=== PATIENT | male | born 1975 | race Caucasian/White ===

== ENCOUNTER 2021-11-24 09:27 | Emergency (ER) | payer OTHER, SELFPAY ==
[2021-11-24 09:38] VITALS: BP 131/87; PULSE 75; RESP 16; TEMP 36.9; O2SAT 100
--- NOTE | 2021-11-24 10:20 | ED.LOWEXIN ---
HPI - Extremity Injury (Lower) General Chief Complaint: Extremity Injury, Lower Stated Complaint: right calf injury Source: patient and RN notes reviewed Mode of arrival: ambulatory History of Present Illness HPI Narrative: This is a 46-year-old male that presented to urgent care with complaints of right calf pain. According to patient he was walking his up a hill and heard and felt a pop on his right calf area. Patient did not do anything at home to relieve his symptoms. He notes that when he strained his foot out is when he experienced the most pain. The patient denies SOB, CP, palpitation, extremity numbness, lightheadedness, dizziness, constipation, neurovascular deficiency, pedal pulses present capillary refill within normal limits diarrhea, chills, or fever. Related Data Allergies Allergy/AdvReac Type Severity Reaction Status Date / Time No Known Allergies Allergy Unverified 12/01/18 12:32 Review of Systems Review of Systems: A 14 organ system Review of Systems was performed and pertinent positives included in the HPI, otherwise remaining ROS is negative. [facility] Surgical History Surgical History History of hernia surgery Family History Family History Sibling Diabetes mellitus Father Diabetes mellitus Social History Social History Smoking status: Former smoker Smoking end date: 11/29/10 Alcohol intake: current Exam Narrative: GENERAL: This is a well-nourished, well-developed patient, in no apparent distress. HEAD: normocephalic, atraumatic. EYES: PERRL. Sclera clear/white. Vision is grossly intact. EARS: External ears normal, auditory canals clear and without drainage, TMs normal without perforation. Hearing grossly intact. NOSE: External nose normal with no obvious nasal discharge, nares without redness, no rhinorrhea. THROAT: Mucous membranes moist, posterior pharynx clear. NECK: Neck supple, non-tender without lymphadenopathy, masses or thyromegaly. CARDIOVASCULAR: Regular rate and rhythm without murmurs, gallops, or rubs. RESPIRATORY: Clear to auscultation. Breath sounds equal bilaterally. No wheezes, rales, or rhonchi. GASTROINTESTINAL: Abdomen soft, non-tender, nondistended. Bowel sounds are active. No hepato-splenomegaly, or palpable masses. No guarding. SKIN: warm, intact with no suspicious lesions or rash, good texture and turgor. NEURO: awake, alert, and oriented to person, place and time. There were no obvious focal neurologic abnormalities. Steady gait EXTREMITIES: Normal range of motion. No edema. Negative Homans sign bilaterally. Tenderness with palpation to the right inner calf. No neurovascular deficiency noted, pedal pulses present, capillary refill within normal limits BACK: Nontender without deformity or crepitance. No flank tenderness. Course Course Emergency Course: Patient will discharge home with Flexeril and ibuprofen and instructed to follow-up with primary care physician if no relief within 3 [address] of the affected extremity Vital Signs Vital signs: Vital Signs Temperature 98.4 F 11/24/21 09:38 Pulse Rate 75 11/24/21 09:38 Respiratory Rate 16 11/24/21 09:38 Blood Pressure 131/87 11/24/21 09:38 Pulse Oximetry 100 11/24/21 09:38 Temperature 98.4 F 11/24/21 09:38 Pulse Rate 75 11/24/21 09:38 Respiratory Rate 16 11/24/21 09:38 Blood Pressure 131/87 11/24/21 09:38 Pulse Oximetry 100 11/24/21 09:38 MDM - Extremity Injury (Lower) Differential Diagnosis Differential diagnosis: Likely other (Leg strain or sprain, right leg fracture dislocation) Discharge Plan Discharge Clinical Impression: Sprain and strain Patient Disposition: Home, Self-Care Condition: Stable Instructions: Antibiotic Form, Leg Sprain (ED) Additional Instructions: Ice to the ar
== END 2021-11-24 10:30 | disposition home or self-care (01) ==
PROVIDERS: Emergency Provider Nurse Practitioner; PCP Internal Medicine
DX: S86.911A Strain of unspecified muscle(s) and tendon(s) at lower leg level, right leg, initial encounter (principal); X58.XXXA Exposure to other specified factors, initial encounter; Z87.891 Personal history of nicotine dependence
CPT/HCPCS: 99213; G0463

== ENCOUNTER 2022-09-03 15:51 | Outpatient (CLI) | payer OTHER, SELFPAY ==
--- NOTE | ~2022-09-03 | US_ITS ---
US soft tissue UE RT 09/03/2022 16:15 Indication: Right anterior forearm Procedure: High-resolution Limited soft tissue ultrasound of the right anterior forearm in the area o f palpable concern Comparison: No prior studies for comparison. Findings: In the area of palpable concern there is a linear echogenic foci with posterior shadowing. There is surrounding isoechoic soft tissue and fluid. This linear structure measures 7 mm in length. Impression: 1: Curvilinear echogenic structure in the right anterior forearm measuring up 7 mm, suspicious for fo reign body with surrounding granulomatous reaction. Consider plain film correlation. Reviewed, dictated and finalized at location A. Impression: 1: Curvilinear echogenic structure in the right anterior forearm measuring up 7 mm, suspicious for foreign body with surrounding granulomatous reaction. Consi irma plain film correlation.
== END 2022-09-03 15:52 | disposition home or self-care (01) ==
LOC: ANHIMG 15:52
PROVIDERS: PCP Internal Medicine; Visit Provider Nurse Practitioner
DX: R22.9 Localized swelling, mass and lump, unspecified (principal)
CPT/HCPCS: 76882

== ENCOUNTER 2022-09-11 07:34 | Outpatient (CLI) | payer OTHER, SELFPAY ==
[2022-09-11 07:47] LABS: Basophils Percent Auto 0.2 % (0.2-1.2); Eosinophils Absolute Auto 0.1 K/mm3 (0-0.3); Eosinophils Percent Auto 2.6 % (0-4.4); Hematocrit 47.8 % (42.0-52.0); Hemoglobin 16.3 g/dL (14.0-18.0); Immature Granulocyte Absolute 0.01 K/mm3 (0.00-0.031); Immature Granulocyte Percent A 0.2 % (0-0.5); Lymphocytes Absolute Auto 1.52 K/mm3 (0.9-3.2); Lymphocytes Percent Auto 30.1 % (18.3-44.2); Mean Corpuscular HGB Conc 34.1 g/dl (32-36); Mean Corpuscular Hemoglobin 31.4 pg (26-34); Mean Corpuscular Volume 92.1 fl (80-100); Mean Platelet Volume 10.4 fl (7.4-10.4); Monocytes Absolute Auto 0.4 K/mm3 (0.1-0.6); Monocytes Percent Auto 8.3 % (2.6-8.5); Neutrophils Percent Auto 58.6 % (45.5-73.1); Platelet Count Result 208 k/mm3 (150-375); Red Blood Count 5.19 M/mm3 (4.6-6.20); Red Cell Distribution Width 12.7 % (11.5-14.5); White Blood Count 5.1 K/mm3 (4.5-10.0)
[2022-09-11 07:57] LABS: Alanine Aminotransferase 46 U/L (6-50); Albumin Level 4.2 g/dL (3.5-5.1); Alkaline Phosphatase 73 U/L (38-126); Anion Gap 8 mmol/L (8-16); Aspartate Amino Transferase 69 U/L (17-59); Bilirubin,Total 1.6 mg/dL (0.2-1.3); Blood Urea Nitrogen 17 mg/dL (9-20); Calcium 8.5 mg/dL (8.4-10.2); Carbon Dioxide 26 mmol/L (22-30); Chloride 106 mmol/L (98-107); Cholesterol 161 mg/dL (0-200); Estimated Glomerular Filt Rate > 60; Glucose 99 mg/dL (65-110); HDL Direct 31 mg/dL; Potassium 4.3 mmol/L (3.4-5.0); Sodium 140 mmol/L (137-145); Triglycerides 53 mg/dL (<150)
[2022-09-11 08:07] LABS: LDL Cholesterol Direct 107 mg/dL
[2022-09-11 08:27] LABS: Prostate Specific Antigen 1.5 ng/mL (< OR = 4.0)
== END 2022-09-11 07:35 | disposition home or self-care (01) ==
LOC: ANHLAB 07:36
PROVIDERS: PCP Internal Medicine; Visit Provider Nurse Practitioner
DX: Z13.29 Encounter for screening for other suspected endocrine disorder (principal); Z13.220 Encounter for screening for lipoid disorders; Z80.42 Family history of malignant neoplasm of prostate
CPT/HCPCS: 36415; 80053; 80061; 84153; 85025